=== PATIENT | female | born 1990 | race Hispanic/Latino ===

== ENCOUNTER 2021-08-17 02:33 | Emergency (ER) | payer SELFPAY ==
[2021-08-17 05:04] LABS: Anion Gap 10 mmol/L (10-20); BUN (Urea Nitrogen) 8 mg/dL (7.0-18.7); Calc. Creatinine Clearance 0 mL/min (70-130); Calcium 9.7 mg/dL (7.8-10.44); Carbon Dioxide 30 mmol/L (22-29); Chloride 105 mmol/L (98-107); Glucose 112 mg/dL (70-105); Potassium 4.6 mmol/L (3.5-5.1); Sodium 140 mmol/L (136-145)
[2021-08-17] MEDS ORDERED: Acetaminophen 325 MG TAB ONE ×2 (05:09)
[2021-08-17 05:36] LABS: #Basophils 0.1 thou/uL (0.0-0.2); #Eosinphils 0.1 thou/uL (0.0-0.7); #Lymphocytes 3.4 thou/uL (1.20-3.40); #Neutrophils 13.2 thou/uL (1.40-6.50); %Basophils 0.5 % (0.0-1.0); %Eosinophils 0.8 % (0.0-10.0); %Lymphocytes 19.1 % (21.0-51.0); %Monocytes 5.3 % (0.0-10.0); %Neutrophils 74.2 % (42.0-75.0); Hemoglobin 11.1 g/dL (12.0-16.0); Mean Corpuscular HGB CONC 31.2 g/dL (32.0-36.0); Mean Corpuscular Hemoglobin 23.3 pg (27.0-31.0); Mean Corpuscular Volume 74.7 fL (78.0-98.0); Mean Platelet Volume 7.6 fL (7.4-10.4); Platelet Count 588 thou/uL (130-400); Platelet Morphology Comment Appears Increased; RBC Distribution Width 15.7 % (11.5-14.5); RBC Morphology Normal; Red Blood Cell (RBC) Count 4.75 mill/uL (4.20-5.40); White Blood Cell (WBC) Count 17.8 thou/uL (4.8-10.8)
== END 2021-08-17 06:20 | disposition home or self-care (01) ==
LOC: ERS 02:33
DX: D72.829 Elevated white blood cell count, unspecified (principal); R59.9 Enlarged lymph nodes, unspecified
CPT/HCPCS: 36415; 70487; 80048; 85025